=== PATIENT | female | born 1940 | race Caucasian/White ===

== ENCOUNTER 2017-09-29 20:13 | Emergency (ER) | payer OTHER ==
[2017-09-29 20:22] VITALS: RESP 18; TEMP 98.2
--- NOTE | 2017-09-29 20:59 | EDPHY ---
H & P Time Seen by Provider: 09/29/17 20:22 HPI/ROS: Chief complaint. Possible UTI HPI. 77-year-old female here by EMS with redness to the umbilical area. This has been present for about 3 days. Patient has been pouring alcohol in it hoping it would improve. It has gotten more red. She really has no abdominal pain but has some slight sense of pressure in her bladder. No fever. No vomiting or diarrhea. No trauma. no similar symptoms previously. ROS Constitutional. no fever/chills, no weakness Eyes. no problems with vision ENT. no sore throat, no nasal drainage Cardiovascular. no chest pain Respiratory. no shortness of breath, no cough Abdominal. no abdominal pain, no nausea/vomiting, no diarrhea . no problems urinating MS. no calf pain/swelling, no neck/back pain, no joint pain Skin. Redness to the umbilicus Lymph. no swollen glands Neuro. no headache, no dizziness, no difficulty walking or with speech Past Medical/Surgical History: Stage 4 kidney disease Social History: nonsmoker no alcohol Smoking Status: Never smoked Physical Exam: General Appearance: Alert well-developed female mild distress vital signs are stable Eyes: Pupils equal and round no pallor or injection. ENT, Mouth: Mucous membranes are moist. Respiratory: There are no retractions, lungs are clear to auscultation. Cardiovascular: Regular rate and rhythm. Gastrointestinal: Abdomen is soft and nontender, no masses, bowel sounds normal. Neurological: Awake and alert, sensory and motor exams grossly normal. Skin: Erythema in the umbilicus and a slight red streak extending about 2 in inferiorly from the umbilicus. Musculoskeletal: Neck is supple nontender. Extremities symmetrical, full range of motion. Psychiatric: Patient is oriented X 3, there is no agitation. Constitutional: Initial Vital Signs Temperature (C) 36.8 C 09/29/17 20:17 Heart Rate 74 09/29/17 20:17 Respiratory Rate 18 09/29/17 20:17 Blood Pressure 105/68 09/29/17 20:17 O2 Sat (%) 96 09/29/17 20:17 O2 Delivery Mode Room Air Allergies/Adverse Reactions: No Known Allergies Allergy (Unverified 09/29/17 22:17) Home Medications: Medication Instructions Recorded Cephalexin [Keflex (*)] 500 mg PO TID #21 cap 09/29/17 Medical Decision Making Procedures: The umbilicus is cleaned and antibiotic ointment is applied. Patient is given cephalexin orally. ED Course/Re-evaluation: Re-evaluation 10:10 p.m. patient is stable. She and I discussed laboratory evaluation. We discussed treatment plan including criteria for return importance of follow-up and further evaluation. She expresses understanding and agreement Differential Diagnosis: I considered urinary tract infection and the patient does have a UTI. She also appears to have some cellulitis in the umbilicus. We will use cephalexin as antibiotic for both. Her urine is cultured. No evidence for intra-abdominal pathology. - Data Points Laboratory Results: Laboratory Results 09/29/17 21:15 09/29/17 21:15 09/29/17 09/29/17 09/29/17 21:15 21:15 20:55 WBC 7.32 10^3/uL 10^3/uL (3.80-9.50) RBC 4.12 10^6/uL L 10^6/uL (4.18-5.33) Hgb 12.6 g/dL g/dL (12.6-16.3) Hct 37.6 % L % (38.0-47.0) MCV 91.3 fL fL (81.5-99.8) MCH 30.6 pg pg (27.9-34.1) MCHC 33.5 g/dL g/dL (32.4-36.7) RDW 14.1 % % (11.5-15.2) Plt Count 120 10^3/uL L 10^3/uL (150-400) MPV 10.6 fL fL (8.7-11.7) Neut % (Auto) 46.9 % % (39.3-74.2) Lymph % (Auto) 41.4 % % (15.0-45.0) [place] % (Auto) 9.6 % % (4.5-13.0) Eos % (Auto) 1.2 % % (0.6-7.6) Baso % (Auto) 0.8 % % (0.3-1.7) Nucleat RBC Rel Count 0.0 % % (0.0-0.2) Absolute Neuts (auto) 3.43 10^3/uL 10^3/uL (1.70-6.50) Absolute Lymphs (auto) 3.03 10^3/uL H 10^3/uL (1.00-3.00) Absolute Monos (auto) 0.70 10^3/uL 10^3/uL (0.30-0.80) Absolute Eos (auto) 0.09 10^3/uL 10^3/uL (0.03-0.40) Absolute Basos (auto) 0.06 10^3/uL 10^3/uL (0.02-0.10) Absolute Nucleated RBC 0.00 10^3/uL 10^3/uL (0-0.01) Immature Gran % 0.1 % % (0.0-1.1) Immature Gran # 0.01 10^3/uL 10^3/uL (0.00-0.10) Sodium 139 mEq/L mEq/L (135-145) Potassium 4.5 mEq/L mEq/L (3.5-5.2) Chloride 106 mEq/L mEq/L (97-110) Carbon Dioxide 20 mEq/l L mEq/l (22-31) Anion Gap 13 mEq/L mEq/L (8-16) BUN 45 mg/dL H mg/dL (7-23) Creatinine 1.8 mg/dL H mg/dL (0.6-1.0) Estimated GFR 27 Glucose 105 mg/dL H mg/dL (70-100) Calcium 9.2 mg/dL mg/dL (8.5-10.4) Urine Color YELLOW Urine Appearance MODERATELY TURBID Urine pH 6.0 (5.0-7.5) Ur Specific [place] 1.017 (1.002-1.030) Urine Protein 2+ H (NEGATIVE) Urine Ketones NEGATIVE (NEGATIVE) Urine Blood NEGATIVE (NEGATIVE) Urine Nitrate NEGATIVE (NEGATIVE) Urine Bilirubin NEGATIVE (NEGATIVE) Urine Urobilinogen NEGATIVE EU EU (0.2-1.0) Ur Leukocyte Esterase 3+ H (NEGATIVE) Urine RBC 5-10 /hpf H /hpf (0-3) Urine WBC 50-182 /hpf H /hpf (0-3) Ur Epithelial Cells 2+ /lpf H /lpf (NONE-1+) Urine Bacteria 4+ /hpf H /hpf (NONE SEEN) Urine Mucus TRACE /lpf /lpf (NONE-1+) Urine Yeast PRESENT /hpf /hpf (NONE SEEN) Urine Glucose NEGATIVE (NEGATIVE) Medications Given: Discontinued Medications Cephalexin (Keflex 500 Mg Prepack#4) 1 btl TAKEHOME EDNOW ONE PRN Reason: Protocol Stop: 09/29/17 21:17 Last Admin: 09/29/17 21:42 Dose: 1 btl Cephalexin HCl (Keflex) 500 mg PO EDNOW ONE PRN Reason: Protocol Stop: 09/29/17 21:16 Last Admin: 09/29/17 21:38 Dose: 500 mg Departure - Departure Disposition: Home, Routine, Self-Care Clinical Impression: UTI (urinary tract infection) Qualifiers: Urinary tract infection type: site unspecified Hematuria presence: without hematuria Qualified Code(s): N39.0 - Urinary tract infection, site not specified Cellulitis Qualifiers: Site of cellulitis: trunk Condition: Good Instructions: Urinary Tract Infection in Women (ED) Additional Instructions: Cephalexin as antibiotic. Return for worsening symptoms. Recheck redness in belly button in 2 days if not improving Referrals: Patient,NotPresent [Unknown] - As per Instructions Prescriptions: Cephalexin [Keflex (*)] 500 mg PO TID #21 cap
[2017-09-29] MEDS ORDERED: CEPHALEXIN 500 MG CAP PO ONE (21:15)
[2017-09-29] MEDS ORDERED: CEPHALEXIN 500MG PREPACK#4 BTL TAKEHOME ONE (21:16)
[2017-09-29 21:25] LABS: PLATELET COUNT 120 10^3/uL (150-400)
[2017-09-29 22:46] VITALS: BP 97/67; PULSE 78; O2SAT 97
== END 2017-09-29 23:13 | disposition home or self-care (01) ==
DX: L03.316 Cellulitis of umbilicus (principal); N39.0 Urinary tract infection, site not specified; B96.20 Unspecified Escherichia coli [E. coli] as the cause of diseases classified elsewhere

== ENCOUNTER 2018-05-18 18:26 | Emergency (ER) | payer OTHER, MEDICAID ==
--- NOTE | 2018-05-18 18:33 | EDPHY ---
H & P Time Seen by Provider: 05/18/18 18:27 HPI/ROS: CHIEF COMPLAINT: Headache, neck pain, left knee pain after mechanical fall HISTORY OF PRESENT ILLNESS: Patient presents the ED with complaints of an occipital headache, neck pain and knee pain after mechanical fall. The patient reportedly slipped on a wet floor. She did not lose consciousness. She is not anticoagulated. She complains of a moderate headache. She denies any complaints of acute numbness or weakness. She denies any chest pain, back pain , abdominal pain or difficulty breathing. The patient was ambulatory after the accident. She complains of pain over her left patella. REVIEW OF SYSTEMS: A comprehensive 10 point review of systems is otherwise negative aside from elements mentioned in the history of present illness. Source: Patient Exam Limitations: No limitations - Medical/Surgical History Hx Asthma: No Hx Chronic Respiratory Disease: No Hx Diabetes: No Hx Cardiac Disease: No Hx Renal Disease: Yes Hx Cirrhosis: No Hx Alcoholism: No Hx HIV/AIDS: No Hx Splenectomy or Spleen Trauma: No Other PMH: stage 4 kidney dz - Social History Smoking Status: Never smoked - Physical Exam Exam: General Appearance: Alert, no distress Head: Occipital hematoma Eyes: Pupils equal, round, reactive ENT, Mouth: No hemotympanum, no oral trauma Neck: Generalized posterior cervical neck pain. Respiratory: No chest wall tender, no subcutaneous air, lungs clear bilaterally Cardiovascular: Regular rate and rhythm Abdomen: Abdomen is soft and nontender, pelvis stable Skin: No lacerations, No abrasion Back: No midline T/L/S pain Extremities: Tenderness to palpation over left patella Neurological: A&Ox3, normal motor function, normal sensory exam Constitutional: Initial Vital Signs Temperature (C) 36.8 C 05/18/18 18:28 Heart Rate 69 05/18/18 18:28 Respiratory Rate 18 05/18/18 18:28 Blood Pressure 128/94 H 05/18/18 18:28 O2 Sat (%) 95 05/18/18 18:28 O2 Delivery Mode Room Air Allergies/Adverse Reactions: No Known Allergies Allergy (Unverified 09/29/17 22:17) Home Medications: Medication Instructions Recorded Cephalexin [Keflex (*)] 500 mg PO TID #21 cap 09/29/17 Medical Decision Making - Diagnostics Imaging Results: 1. Head CT scan: Negative for acute intracranial hemorrhage or skull fracture. 2. Cervical spine x-ray: Negative for acute fracture. 3. Left knee x-ray four view: Negative for acute fracture. Images reviewed by myself and discussed with the radiologist Dr. Mcgraw. ED Course/Re-evaluation: Given the patient's age, hematoma and complaints of headache and neck pain she was taken for CT scan of the head and cervical spine. She arrives with a GCS of 15 and is neurologically intact. X-rays of the left knee have also been ordered. CT scan of head and c-spine demonstrate no evidence of a ICH or fracture. Left knee x-ray is negative for acute fracture. The patient was observed in the emergency department and had serial examinations in the ED. She remains neurologically intact. Differential Diagnosis: Differential diagnosis considered includes skull fracture, closed-head injury, intracranial hemorrhage, knee fracture, knee strain Departure - Departure Disposition: Home, Routine, Self-Care Clinical Impression: Scalp contusion, Cervical strain, acute, Strain of left knee Condition: Good Instructions: Musculoskeletal Pain (ED) Additional Instructions: 1. Return to the ED for increasing headache, neck pain, numbness, weakness or other concerns. 2. Tylenol and ibuprofen as needed for pain. 3. Your x-ray demonstrates no evidence of a knee fracture. 4. Your head CT scan and neck CT scan demonstrate no evidence of a fracture or bleeding. 5. Please follow up with your primary care provider as needed. Referrals: Patient,NotPresent [Unknown] - As per Instructions
[2018-05-18 20:01] VITALS: BP 136/75
== END 2018-05-18 20:00 | disposition home or self-care (01) ==
LOC: EDUNIT#
DX: S00.03XA Contusion of scalp, initial encounter (principal); S16.1XXA Strain of muscle, fascia and tendon at neck level, initial encounter; S86.912A Strain of unspecified muscle(s) and tendon(s) at lower leg level, left leg, initial encounter; W01.0XXA Fall on same level from slipping, tripping and stumbling without subsequent striking against object, initial encounter; M17.12 Unilateral primary osteoarthritis, left knee; N18.4 Chronic kidney disease, stage 4 (severe)

== ENCOUNTER 2018-06-17 01:56 | Emergency (ER) | payer OTHER ==
[2018-06-17] MEDS ORDERED: ACETAMINOPHEN 500 MG TAB PO ONE (02:04)
--- NOTE | 2018-06-17 02:07 | EDPHY ---
H & P Stated Complaint: BIBA for headache. Fall x 1 week ago. Pain started just tonight Time Seen by Provider: 06/17/18 02:00 HPI/ROS: Chief Complaint: Headache, fall 1 week ago HPI: 78-year-old woman woke this morning with a 7/10 headache. Patient states that she fell a week ago and is concerned that she may have sustained an injury during the fall. She did not initially have any head pain and has not had any head pain until this morning. She has been having some mild neck pain. No nausea or vomiting. She has not taking any pain medication. She is also complaining of some mild left knee pain. She has been ambulating with the assistance of a walker which is her usual. No other new complaints at this time. ROS: 10 systems were reviewed and were negative except those elements noted in the HPI. PMH: Denies Social History: No smoking, no alcohol, no recreational drug use Family History: non-contributory Physical Exam: Gen: Awake, Alert, No Distress HEENT: Nose: no rhinorrhea Eyes: PERRLA, EOMI Mouth: Moist mucosa Neck: Supple, no JVD, moderate C-spine tenderness in C4 through 5 Chest: nontender, lungs clear to auscultation Heart: S1, S2 normal, no murmur Abd: Soft, non-tender, no guarding Back: no CVA tenderness, no midline tenderness Ext: no edema, non-tender Skin: no rash Neuro: CN II-XII intact, Sensation grossly intact, Strength 5/5 in bilateral upper and lower extremities - Personal History Current Tetanus Diphtheria and Acellular Pertussis (TDAP): Yes - Medical/Surgical History Hx Asthma: No Hx Chronic Respiratory Disease: No Hx Diabetes: No Hx Cardiac Disease: No Hx Renal Disease: Yes Hx Cirrhosis: No Hx Alcoholism: No Hx HIV/AIDS: No Hx Splenectomy or Spleen Trauma: No Other PMH: stage 4 kidney dz - Social History Smoking Status: Never smoked Constitutional: Initial Vital Signs Temperature (C) 36.6 C 06/17/18 01:59 Heart Rate 69 06/17/18 01:59 Respiratory Rate 16 06/17/18 01:59 Blood Pressure 133/91 H 06/17/18 01:59 O2 Sat (%) 97 06/17/18 01:59 O2 Delivery Mode Room Air Allergies/Adverse Reactions: No Known Allergies Allergy (Unverified 02/08/18 22:17) Medical Decision Making - Diagnostics Imaging Results: Imaging Impressions Cervical Spine CT 06/17/18 02:04 Impression: 1. No definite acute fracture. 2. Degenerative cervical spondylosis resulting in multilevel moderate central canal stenosis and variable bilateral neural foraminal stenosis. 3. if there is is persistent pain or neurological deficit, recommend MR cervical spine and consider flexion and extension views, if clinically indicated. Findings and recommendations discussed with Emergency Department physician, Manuel Wall MD, at 0240 hour, 06/17/2018. Final report concurs with initial preliminary interpretation. Head CT 06/17/18 02:04 Impression: 1. Normal CT brain without contrast. 2. No skull fracture. 3. No epidural or subdural hematoma. Findings and recommendations discussed with Emergency Department physician, Manuel Wall MD, at 0240 hour, 06/17/2018. Final report concurs with initial preliminary interpretation. CT scan of the head and cervical spine showed degenerative changes but nothing acute per Dr. Mo. Imaging: Discussed imaging studies w/ call center consultant Radiologist ED Course/Re-evaluation: Patient's headache is improved after Tylenol. CT scans are negative. I think she has a moderate nonspecific headache. She has not have any risk factors for bleed or infection. She is neurologically intact. Will discharge with follow- up with primary care physician. - Data Points Medications Given: Discontinued Medications Acetaminophen (Tylenol) 1,000 mg PO EDNOW ONE Stop: 06/17/18 02:05 Last Admin: 06/17/18 02:19 Dose: 1,000 mg Departure - Departure Disposition: Home, Routine, Self-Care Clinical Impression: Headache Condition: Good Instructions: Acute Headache (ED) Additional Instructions: Follow up with your primary care physician in 3-4 days for any concerns. Return to the emergency department for increasing headache, worsening neck pain , numbness, weakness, worsening falls, fevers, chills, or any other concerns. Referrals: Patient,NotPresent [Unknown] - As per Instructions
[2018-06-17 03:27] VITALS: BP 138/80
== END 2018-06-17 03:25 | disposition home or self-care (01) ==
LOC: EDUNIT#
DX: R51 Headache (principal); M47.892 Other spondylosis, cervical region

== ENCOUNTER 2018-06-22 03:47 | Emergency (ER) | payer OTHER, MEDICAID ==
[2018-06-22] MEDS ORDERED: ACETAMINOPHEN 500 MG TAB PO ONE (03:57)
--- NOTE | 2018-06-22 04:00 | EDPHY ---
H & P Stated Complaint: fall last tuesday-know with more pain Time Seen by Provider: 06/22/18 03:57 HPI/ROS: HPI CHIEF COMPLAINT: Left-sided headache. Fall last week. HISTORY OF PRESENT ILLNESS: 78-year-old female presents emergency room by EMS from [facility] for headache. This woke from sleep. She describes it as 6/10 left-sided parietal region. She states she had a recent fall she with head strike. She is unsure she was seen medically after this fall and unsure if she had any imaging of her head. However upon review of medical records she was recently here and had a CT scan head with showed no evidence of acute trauma. The patient presents emergency room: 6 out 10 left-sided throbbing headache. Denies neck pain chest pain or shortness of breath. Denies numbness or tingling denies focal weakness. Past Medical History: Chronic kidney disease Past Surgical History: No recent surgery Social History: Lives at [facility] denies drugs alcohol tobacco. Family History: Noncontributory ROS REVIEW OF SYSTEMS: 10 Systems were reviewed and negative with the exception of the elements mentioned in the history of present illness. Exam Constitutional triage nursing summary reviewed, vital signs reviewed, awake/ alert. Eyes normal conjunctivae and sclera, EOMI, PERRLA. HENT head and neck are atraumatic, normal inspection, atraumatic, moist mucus membranes, no epistaxis, neck supple/ no meningismus, no raccoon eyes. Respiratory clear to auscultation bilaterally, normal breath sounds, no respiratory distress, no wheezing. Cardiovascular rate normal, regular rhythm, no murmur, no edema, distal pulses normal. Gastrointestinal soft, non-tender, no rebound, no guarding, normal bowel sounds, no distension, no pulsatile mass. Genitourinary no CVA tenderness. Musculoskeletal no midline vertebral tenderness, full range of motion, no calf swelling, no tenderness of extremities, no meningismus, good pulses, neurovascularly intact. Skin pink, warm, & dry, no rash, skin atraumatic. Neurologic cranial nerves are intact, no focal neuro deficit, appears well, awake, alert and oriented x 3, AAOx3, moves all 4 extremities equally, motor intact, sensory intact, CN II-XII intact, normal cerebellar, normal vision, normal speech. Psychiatric normal mood/affect. Heme/Lymph/Immune no lymphadenopathy. Differential Diagnosis: Includes but is not limited to in a particular order closed-head injury, intracranial bleed, skull fracture, concussion Medical Decision Making: I reviewed the patient's previous ER record. I will give her a g of Tylenol for pain control. Will repeat her CT scan head due to ongoing pain in elderly female. Unclear if she fell again. Is possible that she has concussion or closed head injury. Re-evaluation: CT scan head without contrast negative for acute traumatic injury or bleed. Unchanged from previous CT scan. Patient re-evaluated at 4:45 a.m.. She is resting comfortably. She has an unremarkable neurological exam headache is resolved after Tylenol. Do recommend she follows up with primary care doctor. Additionally return precautions discussed. Source: Patient, EMS - Personal History Current Tetanus Diphtheria and Acellular Pertussis (TDAP): Yes - Medical/Surgical History Hx Asthma: No Hx Chronic Respiratory Disease: No Hx Diabetes: No Hx Cardiac Disease: No Hx Renal Disease: Yes Hx Cirrhosis: No Hx Alcoholism: No Hx HIV/AIDS: No Hx Splenectomy or Spleen Trauma: No Other PMH: stage 4 kidney dz, hernias, breast reduction, - Social History Smoking Status: Never smoked Constitutional: Initial Vital Signs Temperature (C) 36.4 C 06/22/18 03:50 Heart Rate 65 06/22/18 03:50 Respiratory Rate 16 06/22/18 03:50 Blood Pressure 132/77 H 06/22/18 03:50 O2 Sat (%) 96 06/22/18 03:50 O2 Delivery Mode Room Air Allergies/Adverse Reactions: No Known Allergies Allergy (Unverified 06/22/18 03:49) Home Medications: Medication Instructions Recorded NK [No Known Home Meds] 06/22/18 Medical Decision Making - Data Points Medications Given: Discontinued Medications Acetaminophen (Tylenol) 1,000 mg PO EDNOW ONE Stop: 06/22/18 03:58 Last Admin: 06/22/18 04:08 Dose: 1,000 mg Departure - Departure Disposition: Home, Routine, Self-Care Clinical Impression: Closed head injury, Concussion Condition: Good Instructions: Concussion (ED), Head Injury (ED) Additional Instructions: 1. Drink lots of fluids stay well-hydrated 2. Rest. 3. Follow up with her primary care doctor Referrals: RAMON JENNINGS [Other] - As per Instructions Eri Padilla MD [Medical Doctor] - As per Instructions
[2018-06-22 05:26] VITALS: BP 134/78
== END 2018-06-22 05:26 | disposition home or self-care (01) ==
LOC: EDUNIT#
DX: S09.90XA Unspecified injury of head, initial encounter (principal); S06.0X9A Concussion with loss of consciousness of unspecified duration, initial encounter; N18.9 Chronic kidney disease, unspecified

== ENCOUNTER 2018-07-08 12:06 | Emergency (ER) | payer MEDICAID, OTHER ==
--- NOTE | 2018-07-08 13:10 | EDPHY ---
General Time Seen by Provider: 07/08/18 12:35 Narrative: CHIEF COMPLAINT: Fall, knee pain HISTORY OF PRESENT ILLNESS: Patient presents by EMS from assisted living facility with reports of fall and left-sided flank pain, but the patient's only complaint is left knee pain. She states that she tripped and fell, witnessed by many people. She landed on her left knee. She did not fall all the way to the ground. No head strike or loss of conscious. No head, neck, chest, back or abdominal pain. Her only complaint is left knee pain. She has no numbness or tingling or weakness. No laceration or bleeding. Her daughter is the power of real estate associate attorney and contacted us asking us to wait for any interventions until she arrives. No other associated complaints or modifying factors. REVIEW OF SYSTEMS: 10 systems were reviewed and negative with the exception of the elements mentioned in the history of present illness. PAST MEDICAL HISTORY: Dementia, multiple falls PAST SURGICAL HISTORY: No recent surgical history. SOCIAL HISTORY: Nonsmoker. Lives in assisted living. Daughter is power of real estate associate attorney at bedside. FAMILY HISTORY: Noncontributory. EXAMINATION: Vitals: Triage VS reviewed General Appearance: Alert, no distress. Well appearing. No signs of trauma. Head: normocephalic, atraumatic. No Pinon sign or raccoon eyes. No depression deformity. Eyes: Pupils equal and round, no conjunctival pallor or injection ENT, Mouth: Mucous membranes moist Neck: Normal inspection, supple, non-tender Respiratory: Lungs are clear to auscultation Cardiovascular: Regular rate and rhythm. No murmur. Gastrointestinal: Abdomen is soft and nontender Back: non-tender, no bony abnormalities Neurological: Cranial nerves 2-12 grossly intact. A&O, nonfocal, light sensory symmetric upper lower extremities. Strength symmetric upper lower extremities. Skin: Warm and dry, no rash. No laceration or puncture Extremities: Minimal tenderness to the left anterior knee just infrapatellar. Range of motion lower extremities is symmetric at rest in the bed. All compartments are soft without evidence of compartment syndrome or DVT. Psychiatric: Mood and affect normal DIFFERENTIAL DIAGNOSES: Including but not limited to fall, knee sprain, knee fracture, rib contusion, rib fracture, renal laceration, splenic laceration, panic injury, pyelonephritis , UTI, renal colic MDM: 12:30 p.m. Reported mechanical fall with left-sided knee pain only. She denies any head strike or loss of consciousness. Does not take any anticoagulants. This was a witnessed fall. Patient's daughter is on the way and she is asking that we not do any laboratory studies. I do feel this is reasonable and will discuss further with the daughter when she arrives. 1:05 p.m. Daughter is at bedside. She is the power of real estate associate attorney. She is requesting that we not perform any x-rays. We had a very lengthy discussion regarding risks, benefits and alternatives. The daughter is comfortable assuming his risk and does have the right to refuse this. We will attempt to ambulate the patient. If she ambulates successfully, will cancel the x-ray she will be discharged stable condition. SUPERVISION: This patient was independently evaluated without direct involvement of or examination by the attending physician. CONSULTATION: None - History Smoking Status: Never smoked - Objective Vital Signs: Initial Vital Signs Temperature (C) 97.7 F 07/08/18 12:27 Heart Rate 65 07/08/18 12:27 Respiratory Rate 18 07/08/18 12:27 Blood Pressure 128/63 H 07/08/18 12:27 O2 Sat (%) 94 07/08/18 12:27 O2 Delivery Mode Room Air Allergies/Adverse Reactions: No Known Allergies Allergy (Unverified 07/08/18 12:31) Home Medications: Medication Instructions Recorded NK [No Known Home Meds] 06/22/18 Departure - Departure Disposition: Home, Routine, Self-Care Clinical Impression: Fall from standing Qualifiers: Encounter type: initial encounter Qualified Code(s): W19.XXXA - Unspecified fall, initial encounter Knee contusion Qualifiers: Encounter type: initial encounter Laterality: left Qualified Code(s): S80.02XA - Contusion of left knee, initial encounter Condition: Good Instructions: Fall Prevention for Older Adults (ED), Knee Pain (ED) Additional Instructions: 1. Ice and elevate the left extremity 2. Follow up with primary care physician 3. Return to emergency depart for any bony tenderness, difficulty ambulating, chest pain, back pain or abdominal pain Referrals: Patient,NotPresent [Unknown] - As per Instructions Ernestina David MD [[facility] Primary Care Provider] - As per Instructions
[2018-07-08 13:27] VITALS: BP 159/80
--- NOTE | 2018-07-08 14:01 | ASMTCMCOM ---
CM Note CM Note Notes: Patient presents to the ED via EMS from [facility] after falling from her wheelchair on to her left knee. Patient's daughter Safia arrives shortly after patient's arrival, frustrated over patient's repeated ED visits. Patient has visited this ED 4 times since 05/18/18. Safia explains that patient has progressive memory issues and moved to [facility] in September,. Patient is active with [facility] and her physician is Dr. Julianna Wong. [facility] is "supposed" to contact HOWARD and/or Safia directly prior to calling an ambulance. I have contacted Joey at [facility] and he is familiar with patient and family. He confirms that someone is available 14/03 and that patient has "reminders" throughout her apartment regarding non-emergent medical concerns. Joey assures me he will follow up with [facility] at on Tuesday. Safia has provided KANE Mcgrath as an additional [facility] contact. I have LM with Daisha regarding patient's return ED visit and CM goal to assist with care coordination Date Signed: 07/08/2018 02:00 PM Electronically Signed By:Ping Pink RN
== END 2018-07-08 13:32 | disposition home or self-care (01) ==
LOC: EDUNIT#
DX: S80.02XA Contusion of left knee, initial encounter (principal); R10.9 Unspecified abdominal pain; W01.0XXA Fall on same level from slipping, tripping and stumbling without subsequent striking against object, initial encounter; Y92.129 Unspecified place in nursing home as the place of occurrence of the external cause; Y93.9 Activity, unspecified

== ENCOUNTER 2018-09-08 22:25 | Emergency (ER) | payer OTHER ==
--- NOTE | 2018-09-08 22:42 | EDPHY ---
General Time Seen by Provider: 09/08/18 22:38 Narrative: CLINICAL IMPRESSION: Dermatitis ASSESSMENT/PLAN: Patient is a 78-year-old female who currently resides at [facility], takes no medications however has a history of dementia who presents to the emergency department having a sudden onset of burning sensation around her genitals. Patient is afebrile, not toxic-appearing, she is in no acute distress on arrival. She denies any complaints on arrival to the emergency department. Physical examination reveals generalized area of hyperemia along the mons pubis and bilateral upper thighs. There is no intertriginous erythema or evidence of yeast. There is no labial or vaginal involvement, no open wounds or vesicles. There were no clinical findings to suggest Diana, cellulitis, open wounds, anaphylaxis, urticaria, SJS/TENS, herpes virus, pemphigus or syphilis. Query contact dermatitis in light of 1st time use of fragrance soap today. Upon discharge the patient was complaining of mild left lower extremity pain and contusion after a reported fall that she had earlier today. To note, the patient did not mention this or complain about this upon arrival to the emergency department. She denies hitting her head or having loss of consciousness. She denies any neck or back pain, do not suspect traumatic brain injury or traumatic spinal injury. Physical examination reveals a very small contusion to the lateral left calf, she had no bony tenderness or evidence to suggest fracture, dislocation, compartment syndrome or neurovascular compromise. She was able to ambulate without difficulty. She is well established with PCP at [facility] and understands the importance of repeat examination. She will avoid continued use of new products, likely culprit of dermatitis. Strict return precautions discussed- patient is to return to the emergency department should for worsening rash, worsening or uncontrolled pain, difficulty breathing, skin sloughing, lethargy, altered mentation or for any other concerning symptom. Mother verbalizes understanding and she is in agreement with this plan. DIFFERENTIAL DX: Anaphylaxis, urticaria, dermatitis, cellulitis, Diana, varicella, syphilis, pemphigus ED COURSE: CHIEF COMPLAINT: Leela vaginal burning HPI: Patient is a 78-year-old female who currently resides at [facility], takes no medications however does have a history of dementia presents to the emergency department after experiencing a sudden onset of burning sensation around her genitals. Patient reports that this lasted a very brief time, she had her friend look at the area which appeared to be red. She subsequently called 911. Patient with no history of similar episodes. She has had no fevers, chills, chest pain, shortness of breath or abdominal pain. She denies any urinary symptoms to include dysuria, hematuria or frequency. PAST MEDICAL HISTORY: Dementia Family History: Noncontributory Social History: Denies alcohol, denies drugs, denies cigarette smoking ROS: A full 10 point review of systems was negative except for those mentioned in HPI. PHYSICAL EXAM: General Appearance: Well-appearing, no acute distress. HEENT: Normocephalic, atraumatic. External ears are normal. Nares clear. Eyes: PERRLA, no acute vision change, nystagmus, swelling, discharge, pain or photosensitivity. Conjunctiva pink, no pallor or injection. Oropharynx is clear and moist. Neck: Supple, nontender, no lymphadenopathy, no midline pain, FROM, no meningismus. Respiratory: There are no retractions, lungs are clear to auscultation. Cardiac: Regular rate and rhythm, no murmurs or gallops. Gastrointestinal: Abdomen is soft, nontender, bowel sounds normal, no masses/ hernia, no rigidity, guarding or focal peritoneal findings. Genitourinary: Patient with hyperemia to the mons pubis in bilateral upper thighs. There are no intertriginous lesions or redness. There are no labial lesions, vesicles or erythema. There is no discharge. Patient is nontender. Skin: Warm, dry, no nodules on palpation. Upper Extremities: Intact distal pulses, Full range of motion intact, no tenderness, no ecchymosis or edema Lower Extremities: Intact distal pulses, No edema, No cyanosis, full range of motion intact, No calf tenderness bilaterally. There is a nickel size contusion to the left lateral calf with associated tenderness to palpation, compartment is soft. There is no bony tenderness. MEDICAL DECISION MAKING: Patient was seen independently. Secondary supervising physician at time of evaluation was Dr. Wall, he did not evaluate this patient. Diagnosis: Contact dermatitis, left lower extremity contusion. New, requires workup Summary: See Assessment and Plan for summary of ED visit Clinical lab tests: ordered / reviewed. Independent visualization of images, tracing, or specimens: Not applicable. Decision to obtain medical records or history from someone other than the patient: Yes, EMS Review / Summarize previous medical records: Yes Discussed patient with another provider: Yes, Dr. Wall Patient Progress: Stable, discharge. - Objective Vital Signs: Initial Vital Signs Temperature (C) 36.7 C 09/08/18 22:30 Heart Rate 71 09/08/18 22:30 Respiratory Rate 16 09/08/18 22:30 Blood Pressure 135/90 H 09/08/18 22:30 O2 Sat (%) 97 09/08/18 22:30 O2 Delivery Mode Room Air Allergies/Adverse Reactions: No Known Allergies Allergy (Unverified 07/08/18 12:31) Home Medications: Medication Instructions Recorded NK [No Known Home Meds] 06/22/18 Medications Given: Hydrocortisone (Hydrocortisone 1%) 1 caryn TP BID ESHA Stop: 03/07/19 22:59 Last Admin: 09/08/18 23:19 Dose: 1 caryn Departure - Departure Disposition: Home, Routine, Self-Care Clinical Impression: Dermatitis Contusion of leg, left Qualifiers: Encounter type: initial encounter Qualified Code(s): S80.12XA - Contusion of left lower leg, initial encounter Condition: Good Instructions: Dermatitis (ED) Additional Instructions: DISCHARGE INSTRUCTIONS FROM YOUR DOCTOR Thank you for visiting our emergency department today. Please keep in mind that discharge from the emergency department does not mean that there is nothing wrong - it simply means that we have not identified an emergency condition that requires further evaluation or treatment in the hospital. You should always plan to follow up with primary care for re-evaluation of your condition in the next 2-3 days. I believe that you had a skin sensitivity secondary to the new soap that you use today. Please do not use any new soaps, lotions or new detergents. Please use cool compresses to the areas of irritation. You may use the 1% hydrocortisone cream twice a day only as needed. Do not apply to your labia. Return for increased pain, increased redness, fever, urinary symptoms or for any other concerning symptom. People present with illnesses and injuries in different ways, and it is always possible that we have missed something. You may always return for re-evaluation if symptoms worsen or if they are not improving or if you develop new/different symptoms. Again, thank you for choosing our emergency department. We hope that you feel better. Referrals: Patient,NotPresent [Unknown] - 1-2 days without fail (Follow up with your primary care provider at [facility])
[2018-09-08] MEDS ORDERED: HYDROCORTISONE 1% CREAM TP SCH (23:00)
[2018-09-09 00:44] VITALS: BP 123/78
== END 2018-09-09 00:45 | disposition home or self-care (01) ==
LOC: EDUNIT#
DX: S80.12XA Contusion of left lower leg, initial encounter (principal); L30.9 Dermatitis, unspecified; F03.90 Unspecified dementia, unspecified severity, without behavioral disturbance, psychotic disturbance, mood disturbance, and anxiety; W19.XXXA Unspecified fall, initial encounter; Y92.129 Unspecified place in nursing home as the place of occurrence of the external cause; Y99.9 Unspecified external cause status; Y93.9 Activity, unspecified

== ENCOUNTER 2019-01-26 18:41 | Emergency (ER) | payer OTHER | END 2019-01-26 19:53 | disposition home or self-care (01) ==

== ENCOUNTER 2019-02-08 10:23 | Emergency (ER) | payer OTHER | END 2019-02-08 16:52 | disposition home or self-care (01) ==

== ENCOUNTER 2019-02-10 03:44 | Emergency (ER) | payer OTHER | END 2019-02-10 06:00 | disposition home or self-care (01) ==